=== PATIENT | female | born 1955 | race Caucasian/White ===

== ENCOUNTER → 2024-11-05 | Outpatient (CLI) | payer MEDICARE, SELFPAY ==
--- NOTE | 2024-11-05 14:14 | NEURO ---
NCS and/or EMG Patient Report Ordering Doctor: Rafy Hardin DATE OF SERVICE: 11/05/24 Ninfa presents with complaints of numbness over the lateral aspect of her left lower leg and foot. She also reports intermittent low back pain radiating into the left lower limb. Electrodiagnostic findings: Left peroneal motor nerve demonstrates normal distal latency, amplitude and conduction velocity. Left tibial motor response within normal limits. Normal left tibial and peroneal F?waves. Prolonged left tibial H reflex. Absent left superficial peroneal response. Needle EMG testing was performed in the lower limbs. 1+ fibrillations noted in the left peroneus longus, left semitendinosis and left lower lumbar paraspinals. Motor unit action potentials of increased amplitude and duration noted in the left semitendinosis and left peroneus longus. Electrodiagnostic impression: This is an abnormal study in the left lower limb. 1. Electrodiagnostic findings suggestive of acute on chronic left L5 radiculopathy. Multi Select Codes Neurology Neurology Interp Codes: 35725-29 Musc test done w/n test comp (interp) and 86062-44 Nrv cndj tst 5-6 studies (interp)
== END | disposition home or self-care (01) ==
PROVIDERS: PCP Internal Medicine; Referring Provider Psychiatry & Neurology Neurology; Visit Provider Psychiatry & Neurology Neurology
DX: R20.0 Anesthesia of skin (principal); M48.062 Spinal stenosis, lumbar region with neurogenic claudication
CPT/HCPCS: 95886; 95909